=== PATIENT | female | born 2000 | race African-American/Black ===

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

== ENCOUNTER 2020-08-04 18:06 | Emergency (ER) | payer MEDICAID ==
--- NOTE | 2020-08-04 18:13 | ER Document Report ---
ED Medical Screen (RME) - General Chief Complaint: Dizziness Stated Complaint: DIZZY Time Seen by Provider: 08/04/20 18:09 Primary Care Provider: GEOVANNA ROSE MD [Primary Care Provider] - Follow up as needed Notes: HPI: 19-year-old female presenting for dizziness and lightheadedness today. Was standing doing her hair today and became lightheaded and very nauseated. Complains of nausea all day. Her menstrual cycle is 1 day late she did not take a test at home was concerned she might be . Denies abdominal pain or pelvic pain denies vaginal bleeding. No chest pain but patient complains of palpitation-like symptoms PHYSICAL EXAMINATION: Lung sounds are clear to auscultation regular rate and rhythm. No abdominal pain on palpation. Answering all questions appropriately I have greeted and performed a rapid initial assessment of this patient. A comprehensive ED assessment and evaluation of the patient, analysis of test results and completion of medical decision making process will be conducted by an additional ED providers. TRAVEL OUTSIDE OF THE [place] IN LAST 30 DAYS: No - Related Data Allergies/Adverse Reactions: amoxicillin Adverse Reaction (Verified 08/24/18 18:35) Past Medical History Pulmonary Medical History: Reports: Hx Asthma - as child Renal/ Medical History: Denies: Hx Peritoneal Dialysis Doctor's Discharge - Discharge Referrals: GEOVANNA ROSE MD [Primary Care Provider] - Follow up as needed
--- NOTE | 2020-08-04 18:44 | EKG REPORT ---
SEVERITY:- NORMAL ECG - SINUS RHYTHM : Confirmed by: Fortunato Delacruz 04-Aug-2020 18:44:16
--- NOTE | 2020-08-04 18:49 | ER Document Report ---
ED General - General TRAVEL OUTSIDE OF THE [place] IN LAST 30 DAYS: No <LAVONNE CONTRERAS - Last Filed: 08/04/20 20:12> <MARK VILLAGRAN - Last Filed: 08/05/20 02:59> - General Chief Complaint: Dizziness Stated Complaint: DIZZY Time Seen by Provider: 08/04/20 18:09 Primary Care Provider: GEOVANNA ROSE MD [NO LOCAL MD] - Follow up in 3-5 days - HPI Notes: Patient is a 19 y/o female with no medical hx who presents with lightheadedness that began earlier this afternoon. Patient states she was doing her hair when she became very lightheaded and had to sit down. She also states she has had intermittent nausea for the past month. She denies syncopal episode, chest pain, shortness of breath, abdominal pain, vomiting and diarrhea. She tested positive for COVID-19 about two weeks ago but was completely asymptomatic. She states her LMP was 07/10/2020. (LAVONNE CONTRERAS) - Related Data Allergies/Adverse Reactions: amoxicillin Adverse Reaction (Verified 08/04/20 18:46) Past Medical History - General Information source: Patient - Social History Smoking Status: Unknown if Ever Smoked Family History: Reviewed & Not Pertinent Pulmonary Medical History: Reports: Hx Asthma - as child Renal/ Medical History: Denies: Hx Peritoneal Dialysis <LAVONNE CONTRERAS - Last Filed: 08/04/20 20:12> Review of Systems - Review of Systems Constitutional: No symptoms reported EENT: No symptoms reported Cardiovascular: No symptoms reported Respiratory: No symptoms reported Gastrointestinal: See HPI Genitourinary: No symptoms reported Female Genitourinary: No symptoms reported Musculoskeletal: No symptoms reported Skin: No symptoms reported Hematologic/Lymphatic: No symptoms reported Neurological/Psychological: See HPI <TORRES CONTRERASANA Mukul - Last Filed: 08/04/20 20:12> Physical Exam <DIANETORRESLAVONNE Mukul - Last Filed: 08/04/20 20:12> - Vital signs Vitals: Temp Pulse Resp BP Pulse Ox 98.4 F 84 16 136/87 H 100 08/04/20 18:12 08/04/20 18:12 08/04/20 18:12 08/04/20 18:12 08/04/20 18:12 - Notes Notes: PHYSICAL EXAMINATION: VITALS: Vitals reviewed and within normal limits. GENERAL: Well-appearing, well-nourished and in no acute distress. HEAD: Atraumatic, normocephalic. EYES: Pupils equal, round, and reactive to light, extraocular movements intact, sclera anicteric, conjunctiva are normal. ENT: Nares patent. Moist mucous membranes. Oropharynx clear without exudates. NECK: Normal range of motion, supple without lymphadenopathy. LUNGS: Breath sounds clear to auscultation bilaterally and equal. No wheezes, rales, or rhonchi. HEART: Regular, rate, and rhythm without murmurs. ABDOMEN: Soft, nontender, normoactive bowel sounds. No guarding, no rebound. No masses appreciated. EXTREMITIES: Normal range of motion, no pitting or edema. No cyanosis. NEUROLOGICAL: No focal neurological deficits. Moves all extremities spontaneously and on command. PSYCH: Normal mood, normal affect. SKIN: Warm, Dry, normal turgor, no rashes or lesions noted. (LAVONNE CONTRERAS) Course - Laboratory Results Result Diagrams: 08/04/20 18:35 08/04/20 19:50 <LAVONNE CONTRERAS - Last Filed: 08/04/20 20:12> - Laboratory Results Result Diagrams: 08/04/20 18:35 08/04/20 19:50 Critical Laboratory Results Reviewed: No Critical Results - Radiology Results Critical Radiology Results Reviewed: No Critical Results <MARK VILLAGRAN - Last Filed: 08/05/20 02:59> - Re-evaluation Re-evalutation: Patient is a 19 y/o female who presents with an episode of lightheadedness that began earlier today. Patient also reports a month of intermittent nausea. Vital signs are within normal limits. On exam, abdomen is soft and nontender. Neuro exam is normal. CBC and UA are unremarkable within normal limits. CMP, TSH, and serum hCG are still pending. Patient signed out to Mark Villagran NP. Patient handoff done at bedside. (LAVONNE CONTRERAS) 08/04/20 21:29 Patient's chemistries are unremarkable. LFTs are normal. TSH is also normal. hCG is negative. Patient states that she still feels her symptoms. We will give her some Zofran and start her on Flonase. At this time patient will follow up with her primary care provider after quarantine. Follow-up precautions were given. Verbal discharge instructions were given to the patient. They verbalized understanding. They are stable for discharge. (MARK VILLAGRAN) - Vital Signs Vital signs: Temp Pulse Resp BP Pulse Ox 98.0 F 76 18 128/75 H 100 08/04/20 21:40 08/04/20 21:40 08/04/20 21:40 08/04/20 21:40 08/04/20 21:40 - Laboratory Results Laboratory Results Interpreted: 08/04/20 19:50 Sodium 134.9 L - EKG Interpretation by Me Additional EKG results interpreted by me: Sinus rhythm with a rate of 81. QTc 446. Normal axis. No T wave inversions or ST segment changes in consecutive leads. (LAVONNE CONTRERAS) Discharge <LAVONNE CONTRERAS - Last Filed: 08/04/20 20:12> <MARK VILLAGRAN - Last Filed: 08/05/20 02:59> - Discharge Clinical Impression: Lightheadedness, Nausea Condition: Stable Disposition: HOME, SELF-CARE Additional Instructions: You were seen today in the emergency department for dizziness. Your symptoms may be an aftereffect of having COVID-19. Your work-up was reassuring. Start Flonase to help with your allergies. Follow-up with your primary care provider. Prescriptions: Fluticasone Propionate [Flonase Nasal [place] 50 Mcg/[place] 16 gm] 2 sprays NASL DAILY #1 inhaler Ondansetron [Zofran Odt 4 mg Tablet] 1 - 2 tab PO Q4H PRN #15 tab.rapdis PRN Reason: For Nausea/Vomiting Referrals: GEOVANNA ROSE MD [NO LOCAL MD] - Follow up in 3-5 days
[2020-08-04 18:58] LABS: ABSOLUTE EOSINOPHILS # (AUTO) 0.1 10^3/uL (0.0-0.6); ABSOLUTE MONOCYTES (AUTO) 0.3 10^3/uL (0.1-1.4); ABSOLUTE NEUT (AUTO) 4.1 10^3/uL (1.7-8.2); BASOPHILS % (AUTO) 0.7 % (0-2); EOSINOPHILS % (AUTO) 1.4 % (0-6); HEMATOCRIT 38.5 % (36.0-47.0); HEMOGLOBIN 12.6 g/dL (12.0-15.5); LYMPHOCYTES % (AUTO) 30.5 % (13-45); MEAN CORPUSCULAR HEMOGLOBIN 27.2 pg (27.0-33.4); MEAN CORPUSCULAR HGB CONC 32.7 g/dL (32.0-36.0); MEAN CORPUSCULAR VOLUME 83 fl (80-97); MONOCYTES % (AUTO) 5.1 % (3-13); PLATELET COUNT 253 10^3/uL (150-450); RED BLOOD COUNT 4.63 10^6/uL (3.72-5.28); SEGMENTED NEUTROPHILS % (AUTO) 62.3 % (42-78); TOTAL CELLS COUNTED % (AUTO) 100 %; WHITE BLOOD COUNT 6.6 10^3/uL (4.0-10.5)
--- NOTE | 2020-08-04 19:10 | RADIOLOGY REPORT (SQ) ---
EXAM DESCRIPTION: CHEST SINGLE VIEW IMAGES COMPLETED DATE/TIME: 08/04/2020 6:55 pm REASON FOR STUDY: dizziness COMPARISON: None. EXAM PARAMETERS: NUMBER OF VIEWS: One view. TECHNIQUE: Single frontal radiographic view of the chest acquired. RADIATION DOSE: NA LIMITATIONS: None. FINDINGS: LUNGS AND PLEURA: No opacities, masses or pneumothorax. No pleural effusion. MEDIASTINUM AND HILAR STRUCTURES: No masses. Contour normal. HEART AND VASCULAR STRUCTURES: Heart normal in size. Normal vasculature. BONES: No acute findings. HARDWARE: None in the chest. OTHER: No other significant finding. IMPRESSION: NO ACUTE RADIOGRAPHIC FINDING IN THE CHEST. TECHNICAL DOCUMENTATION: JOB ID: [id number] 2010 [employer]- All Rights Reserved Reading location - IP/workstation name: [email or web address]
[2020-08-04 19:40] LABS: APPEARANCE,URINE CLEAR; BILIRUBIN,URINE NEGATIVE (NEGATIVE); COLOR,URINE STRAW; GLUCOSE, URINE NEGATIVE (NEGATIVE); KETONES,URINE NEGATIVE (NEGATIVE); LEUKOCYTE ESTERASE,URINE NEGATIVE (NEGATIVE); NITRITE,URINE NEGATIVE (NEGATIVE); PROTEIN,URINE NEGATIVE (NEGATIVE); URINE SPECIFIC GRAVITY 1.006; UROBILINOGEN,URINE NEGATIVE mg/dL (<2.0)
[2020-08-04 20:46] LABS: ALBUMIN 4.7 g/dL (3.7-5.6); ALKALINE PHOSPHATASE 57 U/L (50-135); ANION GAP 6 (5-19); ASPARTATE AMINO TRANSFERASE 24 U/L (5-30); BILIRUBIN,DIRECT 0.1 mg/dL (0.0-0.4); BILIRUBIN,TOTAL 0.2 mg/dL (0.2-1.3); BLOOD UREA NITROGEN 7 mg/dL (7-20); CALCIUM 9.6 mg/dL (8.4-10.2); CARBON DIOXIDE 29 mmol/L (22-30); CHLORIDE 100 mmol/L (98-107); GLUCOSE 87 mg/dL (75-110); POTASSIUM 3.8 mmol/L (3.6-5.0); TOTAL PROTEIN 7.6 g/dL (6.3-8.2)
[2020-08-04] MEDS ORDERED: ONDANSETRON ODT 4 MG TAB (6 TAB/ER DISP) PO PRN (21:36)
[2020-08-04 21:40] VITALS: BP 128/75
== END 2020-08-04 21:48 | disposition home or self-care (01) ==
LOC: ER 18:06
DX: R42 Dizziness and giddiness (principal); R11.0 Nausea; Z88.0 Allergy status to penicillin; J45.909 Unspecified asthma, uncomplicated
CPT/HCPCS: 36415; 71045; 80053; 81001; 84443; 84703; 85025; 93005; 93010; 99285